=== PATIENT | female | born 1940 | race Caucasian/White ===

== ENCOUNTER 2022-05-18 14:06 | Inpatient (IN) | payer MEDICARE, OTHER ==
[2022-05-18] MEDS ORDERED: Aspirin Chewable 81 MG TAB ONE ×2 (15:03→15:06)
[2022-05-18 15:08] LABS: #Monocytes 0.5 10x3/uL (0.0-1.1); #Neutrophils 10.6 10x3/uL (1.5-8.4); %Basophils 0.3 % (0.0-2.0); %Eosinophils 0.2 % (0.0-6.0); %Lymphocytes 10.8 % (18.0-47.0); %Monocytes 4.2 % (0.0-10.0); %Neutrophils 84.3 % (40.0-75.0); Hemoglobin 14.4 g/dL (12.0-15.5); Mean Corpuscular Hemoglobin 30.2 pg (27.0-33.0); Mean Corpuscular Volume 86.4 fl (81.6-98.3); Mean Platelet Volume 10.8 fl (7.4-10.4); Platelet Count 211 10x3/uL (150-450); RBC Distribution Width 12.8 % (11.5-14.5); Red Blood Cell (RBC) Count 4.77 10x6/uL (3.90-5.03); White Blood Cell (WBC) Count 12.6 10x3/uL (3.5-10.5)
[2022-05-18] MEDS ORDERED: Diltiazem 125 MG/25 ML ONE (15:14)
[2022-05-18] MEDS ORDERED: Iopamidol 370 76% 100 ML VIAL ONE (15:27)
[2022-05-18 15:44] LABS: Acetaminophen Less than 10.0 mcg/mL (10.0-30.0); Alcohol Less than 10 mg/dL (Less than 10); CK (CPK) 85 U/L (29-168); Salicylate Less than 8.0 mg/dL (15.0-30.0)
[2022-05-18 15:45] LABS: ALT (SGPT) 10 U/L (8-55); AST (SGOT) 16 U/L (5-34); Albumin 3.7 g/dL (3.4-4.8); Alkaline Phosphatase 87 U/L (40-110); Anion Gap 19 mmol/L (10-20); BUN (Urea Nitrogen) 22 mg/dL (9.8-20.1); Bilirubin, Total 1.2 mg/dL (0.2-1.2); Calc. Creatinine Clearance 0 mL/min (70-130); Calcium 8.6 mg/dL (7.8-10.44); Carbon Dioxide 18 mmol/L (23-31); Chloride 102 mmol/L (98-107); Estimated GFR 38; Globulin 2.6 g/dL (2.4-3.5); Glucose 229 mg/dL (83-110); Potassium 3.6 mmol/L (3.5-5.1); Protein, Total 6.3 g/dL (5.8-8.1); Sodium 135 mmol/L (136-145)
[2022-05-18 15:47] LABS: CRP (Inflammatory) 1.74 mg/dL (= or < 0.5)
[2022-05-18 15:52] LABS: D-Dimer Test 0.44 mg/L FEU (0.19-0.50); PTT 22.7 sec (22.0-33.0); Prothrombin Time 10.5 sec (9.5-12.1)
[2022-05-18] MEDS ORDERED: Midazolam HCl 2 mg/2 ml Vial ONE (15:55)
[2022-05-18 15:58] LABS: CKMB 0.9 ng/mL (0-6.6)
[2022-05-18 16:43] LABS: SARS-CoV-2 NAA Rapid Test Not Detected (NotDetected)
[2022-05-18] MEDS ORDERED: Acetaminophen 325 MG TAB PO PRN (17:41)
[2022-05-18] MEDS ORDERED: Ondansetron PF 4 MG/2 ML Vial IVP PRN (17:41)
[2022-05-18] MEDS ORDERED: Ondansetron ODT 4 MG TAB PO PRN (17:41)
[2022-05-18 18:06] LABS: Lactic Acid 1.5 mmol/L (0.5-2.2)
[2022-05-19] MEDS ORDERED: FLU VACC QS2022-23(65YR UP)/PF 240 MCG/0.7 ML SYRINGE IM ONE (02:30)
[2022-05-19 06:23] LABS: #Eosinphils 0.1 10x3/uL (0.0-0.5); #Monocytes 0.6 10x3/uL (0.0-1.1); #Neutrophils 5.2 10x3/uL (1.5-8.4); %Basophils 0.4 % (0.0-2.0); %Lymphocytes 34.2 % (18.0-47.0); %Monocytes 6.2 % (0.0-10.0); Hemoglobin 13.8 g/dL (12.0-15.5); Mean Corpuscular HGB CONC 34.3 g/dL (32.0-36.0); Mean Corpuscular Hemoglobin 29.5 pg (27.0-33.0); Mean Corpuscular Volume 85.9 fl (81.6-98.3); Mean Platelet Volume 10.4 fl (7.4-10.4); Platelet Count 196 10x3/uL (150-450); RBC Distribution Width 13.1 % (11.5-14.5); Red Blood Cell (RBC) Count 4.68 10x6/uL (3.90-5.03)
[2022-05-19 06:26] LABS: ALT (SGPT) 7 U/L (8-55); AST (SGOT) 11 U/L (5-34); Albumin 3.7 g/dL (3.4-4.8); Alkaline Phosphatase 76 U/L (40-110); Anion Gap 15 mmol/L (10-20); BUN (Urea Nitrogen) 24 mg/dL (9.8-20.1); Bilirubin, Total 0.7 mg/dL (0.2-1.2); Calc. Creatinine Clearance 65 mL/min (70-130); Carbon Dioxide 23 mmol/L (23-31); Chloride 105 mmol/L (98-107); Estimated GFR 54; Globulin 2.8 g/dL (2.4-3.5); Glucose 130 mg/dL (83-110); Potassium 3.2 mmol/L (3.5-5.1); Protein, Total 6.5 g/dL (5.8-8.1); Sodium 140 mmol/L (136-145)
[2022-05-19] MEDS: Atorvastatin Calcium 40 MG TAB PO SCH (22:33)
[2022-05-19] MEDS: Venlafaxine HCl XR 75 MG CAP PO SCH (22:33)
[2022-05-19] MEDS: Sotalol HCl 80 MG TAB PO SCH (22:45)
[2022-05-20 04:55] LABS: #Eosinphils 0.1 10x3/uL (0.0-0.5); #Monocytes 0.4 10x3/uL (0.0-1.1); #Neutrophils 7.4 10x3/uL (1.5-8.4); %Basophils 0.4 % (0.0-2.0); %Eosinophils 1.2 % (0.0-6.0); %Lymphocytes 18.4 % (18.0-47.0); %Monocytes 3.7 % (0.0-10.0); %Neutrophils 76.1 % (40.0-75.0); Hemoglobin 13.8 g/dL (12.0-15.5); Mean Corpuscular HGB CONC 33.8 g/dL (32.0-36.0); Mean Corpuscular Hemoglobin 29.7 pg (27.0-33.0); Mean Corpuscular Volume 87.7 fl (81.6-98.3); Mean Platelet Volume 10.9 fl (7.4-10.4); Platelet Count 208 10x3/uL (150-450); RBC Distribution Width 13.1 % (11.5-14.5); Red Blood Cell (RBC) Count 4.65 10x6/uL (3.90-5.03); White Blood Cell (WBC) Count 9.8 10x3/uL (3.5-10.5)
[2022-05-20 05:12] LABS: ALT (SGPT) 9 U/L (8-55); AST (SGOT) 18 U/L (5-34); Albumin 3.6 g/dL (3.4-4.8); Alkaline Phosphatase 71 U/L (40-110); Anion Gap 16 mmol/L (10-20); BUN (Urea Nitrogen) 22 mg/dL (9.8-20.1); Bilirubin, Total 0.4 mg/dL (0.2-1.2); Calc. Creatinine Clearance 76 mL/min (70-130); Calcium 9.1 mg/dL (7.8-10.44); Carbon Dioxide 25 mmol/L (23-31); Chloride 105 mmol/L (98-107); Estimated GFR 65; Globulin 3.3 g/dL (2.4-3.5); Glucose 175 mg/dL (83-110); Potassium 3.9 mmol/L (3.5-5.1); Protein, Total 6.9 g/dL (5.8-8.1); Sodium 142 mmol/L (136-145)
[2022-05-20] MEDS: glipiZIDE 10 MG TAB PO SCH (10:47)
[2022-05-20] MEDS: Aspirin 81 mg Enteric Coated Tablet PO SCH (10:47)
[2022-05-20] MEDS: Sotalol HCl 80 MG TAB PO SCH ×2 (10:47→21:45)
[2022-05-20] MEDS ORDERED: Diazepam 10 MG/2 ML SYRINGE IVP SCH (11:00)
[2022-05-20] MEDS: Atorvastatin Calcium 40 MG TAB PO SCH (21:45)
[2022-05-20] MEDS: Venlafaxine HCl XR 75 MG CAP PO SCH (21:51)
[2022-05-21 05:47] LABS: #Eosinphils 0.2 10x3/uL (0.0-0.5); #Monocytes 0.4 10x3/uL (0.0-1.1); #Neutrophils 5.9 10x3/uL (1.5-8.4); %Basophils 0.2 % (0.0-2.0); %Eosinophils 1.8 % (0.0-6.0); %Lymphocytes 24.9 % (18.0-47.0); %Monocytes 4.7 % (0.0-10.0); %Neutrophils 68.2 % (40.0-75.0); Hemoglobin 13.4 g/dL (12.0-15.5); Mean Corpuscular HGB CONC 34.3 g/dL (32.0-36.0); Mean Corpuscular Hemoglobin 29.6 pg (27.0-33.0); Mean Corpuscular Volume 86.5 fl (81.6-98.3); Mean Platelet Volume 10.6 fl (7.4-10.4); Platelet Count 196 10x3/uL (150-450); RBC Distribution Width 12.6 % (11.5-14.5); Red Blood Cell (RBC) Count 4.52 10x6/uL (3.90-5.03); White Blood Cell (WBC) Count 8.6 10x3/uL (3.5-10.5)
[2022-05-21 05:59] LABS: ALT (SGPT) 8 U/L (8-55); AST (SGOT) 13 U/L (5-34); Albumin 3.5 g/dL (3.4-4.8); Alkaline Phosphatase 73 U/L (40-110); Anion Gap 14 mmol/L (10-20); BUN (Urea Nitrogen) 17 mg/dL (9.8-20.1); Bilirubin, Total 0.7 mg/dL (0.2-1.2); Calc. Creatinine Clearance 80 mL/min (70-130); Carbon Dioxide 25 mmol/L (23-31); Chloride 107 mmol/L (98-107); Estimated GFR 69; Globulin 2.8 g/dL (2.4-3.5); Glucose 135 mg/dL (83-110); Potassium 3.8 mmol/L (3.5-5.1); Protein, Total 6.3 g/dL (5.8-8.1); Sodium 142 mmol/L (136-145)
[2022-05-21] MEDS ORDERED: Amlodipine 5 MG TAB PO SCH (06:30)
[2022-05-21] MEDS: Sotalol HCl 80 MG TAB PO SCH ×2 (08:41→21:01)
[2022-05-21] MEDS: glipiZIDE 10 MG TAB PO SCH (08:41)
[2022-05-21] MEDS: Aspirin 81 mg Enteric Coated Tablet PO SCH (08:42)
[2022-05-21] MEDS: Venlafaxine HCl XR 75 MG CAP PO SCH (21:01)
[2022-05-21] MEDS: Atorvastatin Calcium 40 MG TAB PO SCH (21:02)
[2022-05-22 05:53] LABS: ALT (SGPT) 9 U/L (8-55); AST (SGOT) 15 U/L (5-34); Albumin 3.6 g/dL (3.4-4.8); Alkaline Phosphatase 73 U/L (40-110); Anion Gap 15 mmol/L (10-20); BUN (Urea Nitrogen) 16 mg/dL (9.8-20.1); Bilirubin, Total 0.7 mg/dL (0.2-1.2); Calc. Creatinine Clearance 87 mL/min (70-130); Carbon Dioxide 22 mmol/L (23-31); Chloride 108 mmol/L (98-107); Estimated GFR 76; Globulin 2.9 g/dL (2.4-3.5); Glucose 142 mg/dL (83-110); Potassium 3.8 mmol/L (3.5-5.1); Protein, Total 6.5 g/dL (5.8-8.1); Sodium 141 mmol/L (136-145)
[2022-05-22 06:11] LABS: #Eosinphils 0.1 10x3/uL (0.0-0.5); #Monocytes 0.4 10x3/uL (0.0-1.1); #Neutrophils 4.4 10x3/uL (1.5-8.4); %Basophils 0.6 % (0.0-2.0); %Eosinophils 1.7 % (0.0-6.0); %Lymphocytes 29.4 % (18.0-47.0); %Neutrophils 63.2 % (40.0-75.0); Hemoglobin 13.4 g/dL (12.0-15.5); Mean Corpuscular HGB CONC 33.9 g/dL (32.0-36.0); Mean Corpuscular Hemoglobin 29.3 pg (27.0-33.0); Mean Corpuscular Volume 86.2 fl (81.6-98.3); Mean Platelet Volume 10.7 fl (7.4-10.4); Platelet Count 201 10x3/uL (150-450); RBC Distribution Width 12.7 % (11.5-14.5); Red Blood Cell (RBC) Count 4.58 10x6/uL (3.90-5.03)
[2022-05-22] MEDS ORDERED: Amlodipine 10 MG TAB PO SCH (06:15)
[2022-05-22 06:24] VITALS: TEMP 98.5
[2022-05-22] MEDS: Sotalol HCl 80 MG TAB PO SCH (08:36)
[2022-05-22] MEDS: Aspirin 81 mg Enteric Coated Tablet PO SCH (08:37)
[2022-05-22] MEDS: glipiZIDE 10 MG TAB PO SCH (08:48)
[2022-05-22 13:44] VITALS: BP 167/73
== END 2022-05-22 13:15 | disposition home or self-care (01) | DRG 309 ==
LOC: CSHERS 14:06 → CSHTELE 21:09 → OBSVTOIN 05-20 16:29
PROVIDERS: ADMIT Student in an Organized Health Care Education/Training Program; ATTEND Internal Medicine
PROC: 5A2204Z Restoration of Cardiac Rhythm, Single (ICD-10-PCS; principal; 2022-05-20)
DX: I47.1 Supraventricular tachycardia (principal); I42.9 Cardiomyopathy, unspecified; I48.0 Paroxysmal atrial fibrillation; E78.5 Hyperlipidemia, unspecified; G47.33 Obstructive sleep apnea (adult) (pediatric); N18.9 Chronic kidney disease, unspecified; E11.22 Type 2 diabetes mellitus with diabetic chronic kidney disease; I12.9 Hypertensive chronic kidney disease with stage 1 through stage 4 chronic kidney disease, or unspecified chronic kidney disease; E87.6 Hypokalemia; F41.9 Anxiety disorder, unspecified; R55 Syncope and collapse; F32.A Depression, unspecified; Z88.5 Allergy status to narcotic agent; Z98.890 Other specified postprocedural states; Z86.73 Personal history of transient ischemic attack (TIA), and cerebral infarction without residual deficits; Z79.82 Long term (current) use of aspirin; Z79.899 Other long term (current) drug therapy; Z79.84 Long term (current) use of oral hypoglycemic drugs
CPT/HCPCS: 0042T; 36415; 36416; 70450; 70551; 71045; 80053; 80307; 82550; 82553; 83605; 83735; 84443; 84484; 85025; 85379; 85610; 85730; 86140; 86850; 86900; 86901; 92960; 93005; 93306; 94760; 96365; 96372; 96375; G0378; J1650; J2250; J3360; Q9967; U0002